=== PATIENT | female | born 1965 | race Asian ===

== ENCOUNTER 2024-11-19 09:30 | Outpatient (CLI) | payer BC | END 2024-11-19 09:31 | disposition home or self-care (01) | LOC: BICMRI 09:30 | PROVIDERS: ATTEND Internal Medicine | DX: Z08 Encounter for follow-up examination after completed treatment for malignant neoplasm (principal); Z80.3 Family history of malignant neoplasm of breast | CPT/HCPCS: A9577; C8908 ==

== ENCOUNTER 2024-12-06 13:06 | Outpatient (CLI) | payer BC | END 2024-12-06 13:07 | disposition home or self-care (01) | LOC: BICRAD 13:06 | PROVIDERS: ATTEND Internal Medicine | DX: R05.9 Cough, unspecified (principal) | CPT/HCPCS: 71046 ==